=== PATIENT | male | born 1980 | race Caucasian/White ===

== ENCOUNTER 2024-05-18 19:23 | Emergency (ER) | payer OTHER ==
--- NOTE | 2024-05-18 20:54 | ED Physician Documentation ---
PD HPI SKIN - Stated complaint Stated Complaint: RT HAND INJ - Chief complaint Chief Complaint: Laceration - Additional information Additional information: 43-year-old male with no pertinent past medical history presents emergency department for right index finger laceration. Patient says that he was using a nephrologist's knife accidentally dropped it and cut his right lateral MIP joint.Patient is up-to-date with his tetanus shot he has full range of motion to his left index finger without Weakness. PD PAST MEDICAL HISTORY - Past Medical History Past Medical History: No - Past Surgical History Past Surgical History: No - Allergies Allergies/Adverse Reactions: Allergies Allergy/AdvReac Type Severity Reaction Status Date / Time kiwi Allergy Nausea Verified 05/18/24 20:39 - Social History Does the pt smoke?: Yes Smoking Status: Current every day smoker Does the pt drink ETOH?: Yes Does the pt have substance abuse?: No - Immunizations Immunizations are current?: Yes - POLST Patient has POLST: No PD ED PE NORMAL - Vitals Vital signs reviewed: Yes - General General: Alert and oriented X 3, No acute distress, Well developed/nourished - Derm Derm: Other (3 cm laceration to right index finger into the radial aspect over MIP joint) - Extremities Extremities: Other (Right index finger: CMS intact, Able to flex and extend without difficulty against resistance) Results - Vitals Vitals: Vital Signs - 24 hr 05/18/24 05/18/24 20:36 22:08 Temperature 36.4 C L 36.5 C Heart Rate 85 88 Respiratory 18 16 Rate Blood Pressure 137/91 H 128/88 H O2 Saturation 97 98 Oxygen O2 Source Room air Procedures - Laceration (location) right index finger laceration Length in cm: 3 (right laceration to radial aspect of MIP) Wound type: Curved, Clean Neurovascular status: Sensory intact Tendon involvement: Tendon intact Anesthesia: Lidocaine 1% Wound preparation: Other (Thoroughly rinsed in sink tap water) Skin layer closure: Nylon, Interrupted, Size #-0 - enter number (4-0), Sutures - enter # (5) Other: Patient tolerated well, No complications, Neurovascular intact, Dressing applied, Tetanus UTD PD Medical Decision Making - ED course ED course: Wound inspected under direct bright light with good visualization. Area with linear laceration across soft tissue through adipose without exposure of muscle belly or tendon. No overt foreign body. Area hemostatic. Neurovascular exam congruent with above. Area extensively irrigated with sterile normal saline under pressure. Laceration repaired in simple fashion with 5 interrupted sutures (please see procedure note for further details). Patient tolerated procedure well and neurovascular exam intact and unchanged post repair with intact distal pulses and cap refill. Cautious return precautions discussed w/ full understanding. Wound care discussed. Prompt follow up with primary care physician discussed and return for suture removal in 14 days. Departure - Departure Disposition: 01 Home, Self Care Clinical Impression: Laceration of index finger Qualifiers: Encounter type: initial encounter Damage to nail status: without damage Foreign body presence: without foreign body Laterality: right Qualified Code(s): S61.210A - Laceration without foreign body of right index finger without damage to nail, initial encounter Instructions: ED Laceration Sure Close Comments: Come back for any signs of infection which would include: Redness, swelling, drainage, increased pain, or fevers. You can wash it soap and water. Keep it covered and moist with bacitracin ointment which is available over the counter; avoid neosporin. Follow-up with your physician in 14 days for suture removal. Forms: PCP List Discharge Date/Time: 05/18/24 22:08
[2024-05-18] MEDS: LIDOCAINE 2% 10 ML MDV SUBQ ONE ×2 (21:36)
[2024-05-18] MEDS: BACITRACIN ZINC OINT 1 PACKET TOP STA (22:06)
[2024-05-18 22:16] VITALS: BP 128/88; O2SAT 98
== END 2024-05-18 22:08 | disposition home or self-care (01) ==
LOC: ED 19:23
DX: S61.210A Laceration without foreign body of right index finger without damage to nail, initial encounter (principal); W26.0XXA Contact with knife, initial encounter; F17.200 Nicotine dependence, unspecified, uncomplicated
CPT/HCPCS: 12002; 99283